=== PATIENT | male | born 1985 | race African-American/Black ===

== ENCOUNTER 2021-08-05 14:34 | Inpatient (IN) | payer MEDICAID ==
[~2021-08-05] VITALS: Ht 165.1 cm; Wt 81.6 kg
[2021-08-05] MEDS ORDERED: SODIUM CHLORIDE 0.9% 1,000 ML IV ONE (18:15)
[2021-08-05] MEDS ORDERED: LACTATED RINGERS 1,000 ML IV SCH (18:30)
[2021-08-05 19:10] LABS: BASOPHILS % 0.3 % (0.0-2.0); EOSINOPHILS % 0.2 % (0.0-5.0); HEMOGLOBIN. 11.4 g/dL (14.0-18.0); LYMPHOCYTES % 28.6 % (20.0-50.0); MEAN CORPUSCULAR HEMOGLOBIN 27.6 pg (28.0-32.0); MEAN CORPUSCULAR VOLUME 84.8 fL (80.0-94.0); MONOCYTES % 11.1 % (2.0-8.0); NEUTROPHILS % 59.8 % (40.0-76.0); PLATELET 200 x1000/uL (130-400); RED BLOOD CELL COUNT 4.13 mill/uL (4.7-6.1); RED CELL DISTRIBUTION WIDTH 14.7 % (11.6-14.6)
[2021-08-05 19:19] LABS: CHLORIDE 107 mEq/L (98-107)
[2021-08-05 19:23] LABS: ETHANOL BLOOD < 10 mg/dL
[2021-08-05 19:26] LABS: BETA HYDROXYBUTYRATE 0.1 mMol/L (0.0-0.3)
[2021-08-05 20:05] LABS: CLARITY URINE CLEAR (CLEAR); COLOR URINE YELLOW (YELLOW); KETONES URINE NEGATIVE (NEGATIVE); LEUKOCYTE ESTERASE URINE NEGATIVE (NEGATIVE); NITRITE URINE NEGATIVE (NEGATIVE); OCCULT BLOOD URINE NEGATIVE (NEGATIVE); PH URINE 6.5 (4.5-8.0); PROTEIN URINE 1+ (NEGATIVE); SPECIFIC GRAVITY URINE 1.033 (1.005-1.030); UROBILINOGEN URINE 0.2 E.U./dL (0.2-1.0)
[2021-08-05 20:17] LABS: *AMPHETAMINES SCREEN URINE NEGATIVE (NEGATIVE); *BARBITURATES SCREEN URINE NEGATIVE (NEGATIVE); *BENZODIAZEPINES SCREEN URINE NEGATIVE (NEGATIVE); OPIATES URINE SCREEN NEGATIVE (NEGATIVE)
[2021-08-05 20:18] LABS: *COCAINE SCREEN URINE NEGATIVE (NEGATIVE); CANNABINOID URINE SCREEN NEGATIVE (NEGATIVE); METHADONE URINE SCREEN NEGATIVE (NEGATIVE); PHENCYCLIDINE URINE SCREEN NEGATIVE (NEGATIVE)
[2021-08-05] MEDS ORDERED: ASPIRIN 325MG EC TABLET PO ONE (20:45)
[2021-08-06] MEDS ORDERED: LAMO300T2 PO (01:46)
[2021-08-06] MEDS ORDERED: FAMO20TA8 PO (01:46)
[2021-08-06] MEDS ORDERED: RISP1 PO (01:46)
[2021-08-06] MEDS ORDERED: INSLIS SUBCUT (01:46)
[2021-08-06] MEDS ORDERED: LEVO100T9 PO (01:46)
[2021-08-06] MEDS ORDERED: TOPI200T15 PO (01:46)
[2021-08-06] MEDS ORDERED: LANTUSUD SUBCUT (01:46)
[2021-08-06 01:47] VITALS: BP 154/99
[2021-08-06 04:00] VITALS: BP 136/93
[2021-08-06] MEDS ORDERED: DEXTROSE 50% WATER 50ML SYRINGE IV PRN (07:00)
[2021-08-06] MEDS: INSULIN LISPRO 100 UNITS/ML SUBCUT SCH ×4 (07:10→21:00)
[2021-08-06 08:00] VITALS: BP 140/86
[2021-08-06] MEDS ORDERED: FAMOTIDINE 20MG TABLET PO PRN (09:00)
[2021-08-06] MEDS: LEVOTHYROXINE SODIUM 100MCG TABLET PO SCH (10:06)
[2021-08-06] MEDS: ENOXAPARIN 40MG/0.4ML SYR SUBCUT SCH (10:15)
[2021-08-06] MEDS: RISPERIDONE 1MG TABLET PO SCH ×2 (10:15→21:36)
[2021-08-06] MEDS: TOPIRAMATE 100MG TABLET PO SCH ×2 (10:16→21:36)
[2021-08-06] MEDS: LAMOTRIGINE 150MG TABLET PO SCH ×2 (10:16→21:36)
[2021-08-06 10:30] LABS: BASOPHILS % 0.4 % (0.0-2.0); EOSINOPHILS % 0.9 % (0.0-5.0); HEMATOCRIT. 35.1 % (42.0-52.0); HEMOGLOBIN. 11.3 g/dL (14.0-18.0); LYMPHOCYTES % 49.9 % (20.0-50.0); MEAN CORPUSCULAR HEMOGLOBIN 26.9 pg (28.0-32.0); MEAN CORPUSCULAR VOLUME 83.2 fL (80.0-94.0); MEAN PLATELET VOLUME 9.4 fl (7.4-10.4); MONOCYTES % 10.3 % (2.0-8.0); NEUTROPHILS % 38.5 % (40.0-76.0); PLATELET 218 x1000/uL (130-400); RED BLOOD CELL COUNT 4.21 mill/uL (4.7-6.1); RED CELL DISTRIBUTION WIDTH 14.8 % (11.6-14.6)
[2021-08-06] MEDS: INSULIN GLARGINE UD 100 UNITS/ML SYR SUBCUT SCH (10:47)
[2021-08-06 10:51] LABS: CHLORIDE 109 mEq/L (98-107)
[2021-08-06] MEDS ORDERED: BLOOD SUGAR DIAGNOSTIC STRIP TEST SCH (11:40)
[2021-08-06] MEDS: BLOOD SUGAR DIAGNOSTIC STRIP TEST SCH ×3 (11:40→21:31)
[2021-08-06 12:00] VITALS: BP 144/94
[2021-08-06] MEDS ORDERED: RISPERIDONE 1MG TABLET PO SCH (12:45)
[2021-08-06] MEDS ORDERED: FAMOTIDINE(NEO) 1MG/ML SUSP PO PRN (12:45)
[2021-08-06] MEDS ORDERED: TOPIRAMATE 100MG TABLET PO SCH (12:45)
[2021-08-06] MEDS ORDERED: LEVOTHYROXINE SODIUM 100MCG TABLET PO SCH (12:45)
[2021-08-06] MEDS ORDERED: LAMOTRIGINE 150MG TABLET PO SCH (12:45)
[2021-08-06 16:00] VITALS: BP 121/77
[2021-08-06 20:00] VITALS: BP 126/83
[2021-08-07] VITALS: BP 128/95
[2021-08-07 04:00] VITALS: BP 150/91
[2021-08-07] MEDS: BLOOD SUGAR DIAGNOSTIC STRIP TEST SCH ×2 (05:56→12:09)
[2021-08-07] MEDS: INSULIN LISPRO 100 UNITS/ML SUBCUT SCH ×2 (06:26→12:21)
[2021-08-07] MEDS: LEVOTHYROXINE SODIUM 100MCG TABLET PO SCH (06:29)
[2021-08-07 08:00] VITALS: BP 137/72
[2021-08-07] MEDS: TOPIRAMATE 100MG TABLET PO SCH (09:29)
[2021-08-07] MEDS: RISPERIDONE 1MG TABLET PO SCH (09:29)
[2021-08-07] MEDS: LAMOTRIGINE 150MG TABLET PO SCH (10:24)
[2021-08-07] MEDS: ENOXAPARIN 40MG/0.4ML SYR SUBCUT SCH (10:25)
[2021-08-07] MEDS: INSULIN GLARGINE UD 100 UNITS/ML SYR SUBCUT SCH (10:26)
[2021-08-07 12:00] VITALS: BP 118/76
[2021-08-07 13:36] VITALS: BP 148/90
== END 2021-08-07 16:50 | disposition home or self-care (01) | DRG 48 ==
LOC: ER 14:34 → ENRESERV 22:02 → 7EST 22:36 → EDBEDREQ 22:38 → EDBEDREQTM 22:38 → EDBEDREQ 23:53
PROVIDERS: ADMIT Family Medicine; ATTEND Family Medicine
DX: G90.8 Other disorders of autonomic nervous system (principal); I21.A1 Myocardial infarction type 2; I31.3 Pericardial effusion (noninflammatory); E44.0 Moderate protein-calorie malnutrition; G40.909 Epilepsy, unspecified, not intractable, without status epilepticus; E03.9 Hypothyroidism, unspecified; E11.65 Type 2 diabetes mellitus with hyperglycemia; F79 Unspecified intellectual disabilities; R15.9 Full incontinence of feces; I25.2 Old myocardial infarction; Z96.82 Presence of neurostimulator; E66.9 Obesity, unspecified
CPT/HCPCS: 36415; 71045; 80053; 80201; 80305; 80320; 81003; 82010; 82542; 82962; 83036; 84484; 85025; 93005; 93306; 93880; 97161; 99285; J1650; J1815; J7030; G0480

== ENCOUNTER 2022-01-22 18:08 | Emergency (ER) | payer MEDICAID ==
[~2022-01-22] VITALS: Ht 172.7 cm; Wt 82.0 kg
[~2022-01-22 18:08] MED LIST: FAMO20TA8 PO; INSLIS SUBCUT; LAMO300T2 PO; LANTUSUD SUBCUT; LEVO100T9 PO; RISP1 PO; TOPI200T15 PO
[2022-01-22] MEDS ORDERED: RISPERIDONE 1MG TABLET PO SCH (20:30)
[2022-01-22] MEDS ORDERED: LAMOTRIGINE 100MG TABLET PO SCH (20:30)
[2022-01-22 21:00] VITALS: BP 139/90
[2022-01-22 21:16] LABS: CLARITY URINE CLEAR (CLEAR); COLOR URINE YELLOW (YELLOW); KETONES URINE NEGATIVE (NEGATIVE); LEUKOCYTE ESTERASE URINE NEGATIVE (NEGATIVE); NITRITE URINE NEGATIVE (NEGATIVE); OCCULT BLOOD URINE TRACE (NEGATIVE); PH URINE 7.5 (4.5-8.0); PROTEIN URINE 2+ (NEGATIVE); SPECIFIC GRAVITY URINE 1.007 (1.005-1.030); UROBILINOGEN URINE 0.2 E.U./dL (0.2-1.0)
[2022-01-22 21:24] LABS: CHLORIDE 104 mEq/L (98-107)
[2022-01-22 21:26] LABS: BASOPHILS % 0.3 % (0.0-2.0); EOSINOPHILS % 0.1 % (0.0-5.0); HEMATOCRIT. 34.3 % (42.0-52.0); HEMOGLOBIN. 11.6 g/dL (14.0-18.0); LYMPHOCYTES % 12.7 % (20.0-50.0); MEAN CORPUSCULAR HEMOGLOBIN 28.2 pg (28.0-32.0); MEAN CORPUSCULAR VOLUME 83.3 fL (80.0-94.0); MEAN PLATELET VOLUME 9.4 fl (7.4-10.4); MONOCYTES % 8.1 % (2.0-8.0); NEUTROPHILS % 78.8 % (40.0-76.0); PLATELET 171 x1000/uL (130-400); RED BLOOD CELL COUNT 4.11 mill/uL (4.7-6.1); RED CELL DISTRIBUTION WIDTH 13.9 % (11.6-14.6)
== END 2022-01-22 23:23 | disposition home or self-care (01) ==
LOC: ER 18:08
DX: E11.649 Type 2 diabetes mellitus with hypoglycemia without coma (principal); G40.909 Epilepsy, unspecified, not intractable, without status epilepticus; F79 Unspecified intellectual disabilities; Z79.4 Long term (current) use of insulin
CPT/HCPCS: 36415; 80053; 81003; 82962; 85025; 99284

== ENCOUNTER 2025-01-15 22:18 | Emergency (ER) | payer MEDICAID ==
[~2025-01-15 22:18] MED LIST changes: +LEVE1000 MT; -TOPI200T15 PO; +[UNRECOGNIZED DRUG - CODE] PO
[2025-01-15 22:28] VITALS: O2SAT 100
[2025-01-15] MEDS: DEXTROSE 50% WATER 50ML SYRINGE IV NR (22:40)
[2025-01-15] MEDS: DEXTROSE 50% WATER 50ML SYRINGE IV ONE (22:51)
[2025-01-16 03:08] VITALS: BP 158/99; PULSE 80; RESP 12; O2SAT 100
== END 2025-01-16 03:22 | disposition home or self-care (01) ==
LOC: ER 22:18
DX: R56.9 Unspecified convulsions (principal); E11.649 Type 2 diabetes mellitus with hypoglycemia without coma; F84.0 Autistic disorder; Z79.899 Other long term (current) drug therapy
CPT/HCPCS: 71045; 82962; 93005; 96374; 99285